=== PATIENT | male | born 2000 | race Hispanic/Latino ===

== ENCOUNTER 2019-04-12 18:42 | Emergency (ER) | payer OTHER ==
[~2019-04-12] VITALS: Ht 177.8 cm; Wt 76.2 kg
[2019-04-12] MEDS ORDERED: FLUORESCEIN SOD(OPTH) 1 MG STRP ONE (19:32)
--- NOTE | 2019-04-12 22:46 | NUR ---
PT DISCHARGED AT 2048
[2019-04-12] MEDS ORDERED: HYDROCODONE/APAP 5MG-325MG TAB ONE (23:50)
== END 2019-04-12 22:44 | disposition home or self-care (01) ==
LOC: FSED 18:42
DX: H10.13 Acute atopic conjunctivitis, bilateral (principal); H18.823 Corneal disorder due to contact lens, bilateral
CPT/HCPCS: 99282

== ENCOUNTER 2019-04-12 22:24 | Emergency (ER) | payer OTHER ==
[~2019-04-12] VITALS: Ht 177.8 cm; Wt 76.2 kg
[2019-04-12] MEDS ORDERED: HYDROCODONE/APAP 5MG-325MG TAB PO PRN (23:00)
[2019-04-13 00:39] VITALS: BP 130/80
== END 2019-04-13 01:00 | disposition home or self-care (01) ==
LOC: FSED 22:24
DX: H10.13 Acute atopic conjunctivitis, bilateral (principal); H18.823 Corneal disorder due to contact lens, bilateral
CPT/HCPCS: 99282